=== PATIENT | female | born 1985 ===

== ENCOUNTER 2022-06-05 23:46 | Emergency (ER) | payer OTHER ==
[2022-06-06] MEDS ORDERED: Sodium Chloride 0.9% 10 ML Syringe FLUSH PRN
[2022-06-06] MEDS ORDERED: Morphine 2 MG/ML SYRINGE IVPUSH ONE (00:01)
[2022-06-06 00:36] LABS: ANION GAP 10.9 meq/L (7-15); CHLORIDE,CL 106 mmol/L (98-107); ESTIMATED GFR 96 mL/min (>=60); SODIUM,NA 140 mmol/L (136-145)
[2022-06-06 01:36] LABS: BARBITURATE SCREEN,URINE NEGATIVE (NEGATIVE); BENZODIAZEPINES SCREEN,URINE NEGATIVE (NEGATIVE); EDDP,URINE SCREEN NEGATIVE (NEGATIVE); TCA SCREEN,URINE NEGATIVE (NEGATIVE); THC SCREEN,URINE 50 NG/ML NEGATIVE (NEGATIVE)
[2022-06-06] MEDS ORDERED: Morphine 4 MG/ML Syringe IVPUSH ONE (01:44)
[2022-06-06] MEDS ORDERED: Ketorolac 15 MG/ML SDV IVPUSH ONE (01:44)
[2022-06-06] MEDS ORDERED: Diphtheria,Pertussis(Acell),Tetanus Vaccine 0.5 ML Syringe IM ONE (01:45)
[2022-06-06] MEDS ORDERED: Potassium Chloride 20 MEQ Tab.ER PO ONE (01:46)
[2022-06-06 01:49] LABS: BUPRENORPHINE SCREEN,URINE NEGATIVE (NEGATIVE)
[2022-06-06] MEDS ORDERED: Bacitracin Oint 1 GM U/D Packet TOP ONE (01:50)
[2022-06-06] MEDS ORDERED: Ondansetron 4 MG/2 ML SDV IVPUSH ONE (02:11)
[2022-06-06] MEDS ORDERED: Sodium Chloride 0.9% 500 ML IV SCH (02:15)
== END 2022-06-06 06:00 | disposition home or self-care (01) ==
LOC: LL.ED 23:46
DX: S01.81XA Laceration without foreign body of other part of head, initial encounter (principal); S41.012A Laceration without foreign body of left shoulder, initial encounter; S49.92XA Unspecified injury of left shoulder and upper arm, initial encounter; S89.92XA Unspecified injury of left lower leg, initial encounter; V48.5XXA Car driver injured in noncollision transport accident in traffic accident, initial encounter; Y92.410 Unspecified street and highway as the place of occurrence of the external cause
CPT/HCPCS: 36415; 70450; 71045; 72125; 73020-LT; 80053; 80305-QW; 80307; 81001; 81025; 83605; 85025; 96361; 96374; 96375; 96376; 99284; 99285-25; J1885; J2270; J2405; J3490; J7040